=== PATIENT | male | born 1950 | race Caucasian/White ===

== ENCOUNTER 2019-01-23 09:00 | Inpatient (IN) | payer MEDICARE ==
[2019-01-23] MEDS: Multivitamin Tab PO SCH (10:00)
[2019-01-23 12:25] VITALS: BP 150/99
[2019-01-23] MEDS ORDERED: Maalox 30 mL Cup PO PRN (12:26)
[2019-01-23] MEDS ORDERED: Magnesium Hydroxide (MOM) 30 mL UDC PO PRN (12:26)
[2019-01-23] MEDS: Apixaban 5 MG TABLET PO SCH (16:34)
--- NOTE | 2019-01-23 16:57 | History & Physical ---
ADMIT DATE: 01/23/2019 CHIEF COMPLAINT: "I am anxious." HISTORY SOURCE: Reviewing the chart, talking to the patient and staff at [facility]. HISTORY OF PRESENT ILLNESS: A 68-year-old male with a longstanding history of essential tremor, history of thyroidectomy, history of splenectomy, currently taking propranolol for his essential tremor, has a history of alcoholism in the past, stated that he was sober for almost 40 days, but last 2 days, he has been drinking and he fell down and hit his head and had a laceration. For that, he went to Emergency Room at [facility]. The patient did have laceration repair. The patient's alcohol level was reported 348. The patient needed to be admitted to [facility] considering the patient was dangerous to himself. The patient is now being [facility] and I am evaluating this patient. PAST MEDICAL HISTORY: Remarkable for: 1. Essential tremor. 2. Alcohol dependence. 3. Degenerative joint disease. 4. Hyperlipidemia as per chart. 5. Pulmonary embolism. MEDICATIONS AT HOME: He is taking Eliquis, propranolol. ALLERGIES: The patient is not allergic to medications. SOCIAL HISTORY: He lives with the family in [place]. He is retired but doing some consulting business. The patient has a history of alcohol use, but no smoking cigarettes or any street drug use. FAMILY MEDICAL HISTORY: Remarkable for cancer in his father and mother, but negative for diabetes and hypertension. REVIEW OF SYSTEMS: The patient is very anxious. The patient is asking for something to calm down. When he is very anxious, his tremor gets worse. The patient denies any headache. Denies any blurred vision, double vision, dysphagia, odynophagia, runny nose, stuffy nose, fever, chills, cough, chest pain, shortness of breath, palpitation, dizziness, nausea, vomiting, diarrhea, dysuria, hematuria, hematochezia, melena. No seizure or syncopal episode, does feel very unsteady. PAST MEDICAL HISTORY: Remarkable for splenectomy as well as thyroidectomy. PHYSICAL EXAMINATION: GENERAL: The patient is alert, awake, oriented, lying in the bed without any acute distress. VITAL SIGNS: Temperature 98, pulse is 115, respiratory rate 16, blood pressure 150/90. HEENT: Normocephalic, atraumatic. Extraocular muscles are intact. Tongue was pink and coated. Poor dentition noted. No oral lesions, no exudate. No sinus tenderness. Staple wound on the occipital area size approximately 4 cm with no active bleeding noted. NECK: Supple, no JVD, no hepatojugular reflex. No lymphadenopathy, thyromegaly or carotid bruit. A well-healed surgical scar, previously done thyroidectomy noted. HEART: Both heart sounds are regular. Tachycardia noted. No S3, no S4, no murmur. CHEST AND LUNGS: Equal in expansion with no expiratory wheezing. ABDOMEN: Soft. No guarding, no rigidity. Bowel sounds are present. No palpable mass. EXTREMITIES: No edema, no cyanosis. Pulses are +1. No calf tenderness noted. NEUROLOGIC: Alert, awake and oriented to time, place, person. 2-12 cranial nerves are intact. Power in upper and lower extremities is 5-. Sensory and touch are intact. The patient has intention and resting tremors also noted including the nodding of his head. The patient is also noted to have broad-based gait. AVAILABLE DIAGNOSTIC DATA: Performed at [facility] Emergency Room, which includes spinal CT, head CT, chest x-ray, CBC, chemistry panel have been reviewed. CLINICAL IMPRESSION: 1. Pulmonary embolism. 2. Essential tremor. 3. Alcohol abuse. 4. Hyperlipidemia by history. 5. Spinal stenosis with DJD of C-spine. 6. Thyroidectomy as per history noted on multinodular goiter on CT. 7. Pulmonary embolism. 8. Alcohol dependence. 9. Fall risk. 10. Status post splenectomy. 11. Psychotic disorder. PLAN: In the view of his history, I will put the patient on Librium 25 mg b.i.d. and use Ativan p.r.n., multivitamin, folic acid, thiamine will be added as well. Restart the patient on Eliquis along with propranolol for now. Fall precautions will be provided. Psych evaluation and management deferred to psychiatrist. The patient will be followed by us during the stay in the hospital. The patient may require outpatient workup for his spinal stenosis. The patient has fully understood about the treatment plan. JOB# [id number]
--- NOTE | 2019-01-24 01:33 | Psychiatric Evaluation ---
DATE OF SERVICE: 01/23/2019 PSYCHIATRIC INITIAL EVALUATION AGE: 68. SEX: Male. PHYSICIAN: Dr. Saini. CHIEF COMPLAINT: "I was drinking." HISTORY OF PRESENT ILLNESS: The patient is a 68-year-old male on his first psychiatric hospitalization and treatment. The patient was placed on a 5150 hold for dangers to hang himself after the patient fell on the back of his head and the patient required eight stitches in the back of his head. The patient apparently has not been able to care for himself. The patient also reported driving for 2 miles after drinking 9 pints of vodka in order to tow picker his . The patient also has been anxious and has been drinking heavily. He said that he has been drinking about half to one pint of vodka daily. Last time, he drank was on the same day of admission to [facility] Emergency Room where I evaluated the patient and transferred him to [facility]. The patient also has been anxious and has been depressed, especially that he has been retired and also said that he is depressed because his currently has been on continuous oxygen and he is depressed because of her has to go with oxygen tank all the time in order to help her breathing. The patient according to the hold was found lying on the driveway with a laceration in the back of his head and he was not able to give much information at that time. The patient was medically cleared in the Emergency Room. PAST PSYCHIATRIC HISTORY: The patient denies any history of psychiatric treatment or any treatment for his drug use. PAST MEDICAL HISTORY: The patient has benign tremors of both hands. Also had pulmonary embolism in November of this year. The patient also has hypertension and hypercholesterolemia besides the laceration in the back of his head. SOCIAL HISTORY: The patient is for 44 years. Has 2 children, ages 39 and 42 years old that are living independently and has own families. The patient is retired and used to work as a managing consultant, but he retired about 2 years ago and since then "had a lot of ____and sometimes didn't know what to do." The patient denies any legal issues or any abuse issues. ALLERGIES: No known allergies. MENTAL STATUS EXAMINATION: The patient appears his stated age. Anxious. Sad affect. In a depressed mood. Cooperative. Thought processes are mainly goal directed. The patient denies any hallucinations or delusions and he denies any suicidal or homicidal ideations. The patient is alert and oriented to time, place, person, and situation. Intact immediate memory and he remembered the events happened prior to his admission. Intact recent memory and he remembered the events after ____ intact remote memory and he remembered his date. Fair insight and he knows that he needs to get help with his drinking. Poor judgment and he was drinking heavily without asking for any help and resulting in falling down and injuring his head. He seems to be of average intelligence based on his verbal ability. Fair attention and concentration ASSESSMENT: PRIMARY DIAGNOSIS: Depressive mood disorder, unspecified. SECONDARY DIAGNOSIS: Alcohol use disorder. TREATMENT PLAN: Continue to monitor his behavior and his condition closely. We will monitor the patient closely for any possible detox. We will also work on his rehabilitation of his drug use. ESTIMATED LENGTH OF STAY: 5-7 days. PATIENT'S STRENGTHS AND WEAKNESSES: The patient seems to be in relatively fair health and motivated for treatment. Weakness is his ineffective coping and misuse of leisure time by drinking. AFTER DISCHARGE PLAN: Outpatient treatment and followup will continue as an outpatient. CRITERIA FOR DISCHARGE: The patient will not be going through withdrawal and will stabilize psychotropic medications and will establish rehabilitation. JOB# [id number]
--- NOTE | 2019-01-24 07:54 | Progress Notes ---
DATE: 01/24/2019 SUBJECTIVE: Chart was reviewed and the patient interviewed. Also discussed the patient's condition with the staff and reviewed records and labs. The patient is still anxious and is still in a depressed mood. The patient also is cooperative and he is answering questions appropriately. He also is still guarded, but depressed. He only admitted to his issues with drinking, but minimizing other issues. He also is answering questions appropriately and seems to be calmer than yesterday. ASSESSMENT: The patient is still depressed and high risk of suicide. TREATMENT PLAN: Continue to monitor behavior and condition closely. Also, continue adjusting psychotropic medications and work on behavioral modification as well as his drinking. Also, we will start the patient on Lexapro 5 mg every day and continue to follow up. JOB# [id number]
[2019-01-24] MEDS: Multivitamin Tab PO SCH (09:08)
[2019-01-24] MEDS: Apixaban 5 MG TABLET PO SCH ×2 (09:08→16:40)
--- NOTE | 2019-01-24 09:31 | Progress Notes ---
DATE: 01/24/2019 IDENTIFICATION: A 68-year-old male. SUBJECTIVE: The patient seen and examined. The patient stated that he feels a little better. Denies any chest pain, shortness of breath, palpitation, dizziness, nausea or vomiting. PHYSICAL EXAMINATION: VITAL SIGNS: Temperature 97.7, pulse 56, respiratory rate 18, blood pressure 128/57. HEENT: No facial asymmetry. NECK: Supple. No JVD. HEART: Regular. LUNGS: Clear to auscultate. ABDOMEN: Soft. Normal bowel sounds present. No palpable mass. EXTREMITIES: No edema. NEUROLOGIC: Unremarkable for involuntary tremor, which has become more prominent with intention. CLINICAL IMPRESSION: 1. Essential tremor. 2. Pulmonary embolism. 3. Alcohol dependence. 4. Hyperlipidemia. 5. Degenerative joint disease. 6. Spinal stenosis. 7. Status post splenectomy. PLAN: 1. Anticoagulation therapy. 2. Beta juana. 3. Fall precautions. 4. Librium. 5. General nursing care. 6. Nutritional support. 7. Fall precautions. 8. Follow lab. 9. Care plan reviewed and discussed with staff. JOB# [id number]
--- NOTE | 2019-01-25 07:24 | Discharge Summary ---
DATE OF DISCHARGE: 01/25/2019 AGE: 68. SEX: Male. PHYSICIAN: Dr. Saini. FINAL DIAGNOSIS: PRIMARY DIAGNOSIS: Depressive mood disorder, unspecified. SECONDARY DIAGNOSIS: Alcohol use disorder. MEDICAL DIAGNOSIS: Eight stitches in the scalp and the back of the head, essential tremors, hyperlipidemia, pulmonary embolism, degenerative joint disease. REASON FOR HOSPITALIZATION: The patient was transferred from [facility] Emergency Room on 5150 hold because the patient was argumentative and had an argument with his and the patient fell on the back of his head and required eight stitches. And he also was severely depressed and he felt that he wanted to end his life. HOSPITAL COURSE: The patient was admitted to the hospital. The patient was started on Lexapro 5 mg every day, but the patient did not start until the day of his discharge. The patient was cooperative with his treatment and he was not suicidal or homicidal. The patient hold and the patient was not a candidate for 5250 hold and the patient agreed to continue his treatment as an outpatient and given appointment to see me in my office on February 02 at 4:45, also to see his chemical dependency program staff that he was involved with in the past and in [facility]. Physical exam of the patient came as mentioned under medical diagnosis of the final diagnosis. The patient had no major medical problems while in the hospital. MENTAL STATUS EXAMINATION: Upon discharge, calm and cooperative. Fair eye contact and normal tone and rate of speech. Denies any suicidal or homicidal ideations. AFTER DISCHARGE PLANS: The patient discharged from the hospital with plans to continue his treatment as an outpatient with myself. EXPECTED OUTCOME AFTER DISCHARGE: Fair if the patient continues with his outpatient treatment and also work on his addiction and followup. JOB# [id number]
[2019-01-25] MEDS: Multivitamin Tab PO SCH (08:52)
[2019-01-25] MEDS: Apixaban 5 MG TABLET PO SCH ×2 (08:52→17:06)
--- NOTE | 2019-01-25 19:09 | Progress Notes ---
DATE: 01/25/2019 IDENTIFICATION: 68-year-old male. SUBJECTIVE: The patient seen and examined. The patient is dressed up and ready to go home. The patient has been discharged to home today by psychiatrist. The patient currently denies any chest pain, shortness of breath, palpitation, dizziness, nausea, vomiting, diarrhea. He feels much better. PHYSICAL EXAMINATION: VITAL SIGNS: Temperature 98, pulse is 66, respiratory rate 18, blood pressure 132/70. HEENT: No facial asymmetry. Poor dentition noted. NECK: Supple. No JVD, no hepatojugular reflux or lymphadenopathy. HEART: Both heart sounds are regular. CHEST AND LUNGS: Equal in expansion, no expiratory wheezing. ABDOMEN: Soft, no guarding, no rigidity. Bowel sounds are present. No palpable mass. EXTREMITIES: No edema. NEUROLOGIC: Remarkable for involuntary tremor. Medication admission record has been reviewed. CLINICAL IMPRESSION: 1. Essential tremor. 2. Alcohol dependence. 3. Pulmonary embolism. 4. Hyperlipidemia. 5. Degenerative joint disease. 6. Cervical spinal stenosis. 7. History of splenectomy. PLAN: Continue beta juana as prescribed. Botox will be given as an outpatient. Continue Eliquis for pulmonary embolism. Alcohol dependence and depression management to psychiatrist. The patient is advised to get outpatient MRI of C-spine for evaluation of DJD of the C-spine. The patient has been advised to see geophysical prospector in office in 1 week. JOB# [id number]
[2019-01-25] MEDS ORDERED: Escitalopram Oxalate 5 mg Tab PO SCH (21:00)
== END 2019-01-25 18:14 | disposition home or self-care (01) | DRG 881 ==
LOC: GERO 09:00
PROVIDERS: ADMIT Psychiatry & Neurology Psychiatry; ATTEND Psychiatry & Neurology Psychiatry
DX: F32.9 Major depressive disorder, single episode, unspecified (principal); F41.9 Anxiety disorder, unspecified; E89.0 Postprocedural hypothyroidism; Y90.8 Blood alcohol level of 240 mg/100 ml or more; M48.02 Spinal stenosis, cervical region; I10 Essential (primary) hypertension; E78.00 Pure hypercholesterolemia, unspecified; F10.20 Alcohol dependence, uncomplicated; M19.90 Unspecified osteoarthritis, unspecified site; E78.5 Hyperlipidemia, unspecified; Z90.81 Acquired absence of spleen; Z86.711 Personal history of pulmonary embolism; Z79.01 Long term (current) use of anticoagulants
CPT/HCPCS: 83036-90; Z7610